=== PATIENT | female | born 1950 | race Asian ===

== ENCOUNTER 2020-03-20 15:36 | Emergency (ER) | payer OTHER ==
[~2020-03-20] VITALS: Ht 162.6 cm; Wt 77.1 kg
[2020-03-20 15:36] VITALS: BP 252/145; TEMP 97.4
[2020-03-20 16:40] LABS: PLATELET COUNT 225 K/uL (152-353)
[2020-03-20 16:54] LABS: POTASSIUM 2.8 mmol/L (3.6-5.2); SODIUM 138 mmol/L (136-145)
[2020-03-20 16:59] LABS: PARTIAL THROMBOPLASTIN TIME 23.3 SECONDS (24.5-33.6)
== END 2020-03-20 18:20 | disposition still patient (30) ==
LOC: ED 15:39
PROVIDERS: Hospitalist
PROC: 0T9B70Z Drainage of Bladder with Drainage Device, Via Natural or Artificial Opening (ICD-10-PCS; principal; 2020-03-20)
PROC: 0BH17EZ Insertion of Endotracheal Airway into Trachea, Via Natural or Artificial Opening (ICD-10-PCS; 2020-03-20)
PROC: 5A1935Z Respiratory Ventilation, Less than 24 Consecutive Hours (ICD-10-PCS; 2020-03-20)
DX: I62.9 Nontraumatic intracranial hemorrhage, unspecified (principal); E87.6 Hypokalemia; G81.94 Hemiplegia, unspecified affecting left nondominant side
CPT/HCPCS: 31500; 36600; 51702; 80053; 82550; 82805; 84484; 85027; 85610; 85730; 93005; 94002; 94003; 94760; 96360; 96365; 96366; 96375; 99285; J0330; J0360; J2250; J2405; J2704; J3490